=== PATIENT | male | born 1945 | race Caucasian/White ===

== ENCOUNTER 2019-04-06 01:30 | Outpatient (CLI) | payer OTHER, SELFPAY ==
[2019-04-06] MEDS: Omnipaque 350 MG/ML 50 ML BTL IJ (12:22)
[2019-04-06] MEDS: Breeza Beverage 473 ML BTL PO (13:25)
[2019-04-06] MEDS: Omnipaque 350 MG/ML 100 ML BTL IJ (13:27)
--- NOTE | 2019-04-06 13:48 | DI.CT_ITS ---
EXAM: CT ABDOMEN AND PELVIS W CLINICAL HISTORY: ABNORMAL WEIGHT LOSS, ABDOMINAL PAIN, LOW APPETITE S/P IMPACTED WISDOM TOOTH, S/P ANTIBIOTICS. TECHNIQUE: CT examination of the abdomen and pelvis was performed with bolus infusion of 100 cc of O mnipaque 350 and ingestion of dilute barium. COMPARISON: No exams were available for comparison FINDINGS: Images obtained through the lung bases are unremarkable. Cardiac size within normal limits. There a re multiple well-circumscribed water attenuation lesions of the liver and right kidney consistent wit h cysts. There are tiny nonobstructing bilateral renal calculi. Pancreas appears normal. Gallbladd er and bile ducts appear normal. Spleen appears normal. Abdominal aorta is of normal diameter. No major vascular occlusion identified. No significant abdominal wall hernia seen. Appendix is not specifically identified but there is no evidence of appendicitis. There is a segment of mid small bowel with very irregularly thickened wall and streaky increased radiodensity in the me sentery with localized mesenteric adenopathy, lymph nodes measuring up to roughly 2 cm in diameter. No retroperitoneal adenopathy seen. No evidence of diverticulitis. Prostate is enlarged. Urinary bladder may have a mildly thickened wall raising the possibility of ch ronic bladder outlet obstruction. IMPRESSION: Very abnormal small bowel segment measuring up to perhaps 10+ cm in length in the mid small bowel wit h very irregular wall thickening, luminal narrowing, and marked increased fat attenuation and adjacen t mesentery with prominent associated mesenteric lymph nodes. The findings as described could represe nt inflammatory process but the possibility of neoplastic disease including lymphoma would also have to be considered. Infectious process not excluded. Incidental note is made of bilateral nonobstructing renal calculi.
== END 2019-04-06 01:50 ==
PROVIDERS: PCP Occupational Therapist; Visit Provider Occupational Therapist
DX: R63.4 Abnormal weight loss (principal); R10.9 Unspecified abdominal pain; R63.0 Anorexia; K63.89 Other specified diseases of intestine; N28.1 Cyst of kidney, acquired; K76.89 Other specified diseases of liver; N20.0 Calculus of kidney; R59.0 Localized enlarged lymph nodes; N40.0 Benign prostatic hyperplasia without lower urinary tract symptoms; N32.89 Other specified disorders of bladder
CPT/HCPCS: 74177; J3490; Q9967

== ENCOUNTER 2019-09-26 10:30 | Outpatient (RCR) | payer OTHER, SELFPAY ==
[2019-09-12] MEDS: Normal Saline Flush 10 ML SYR IVP (11:41)
[2019-09-12] MEDS: Heparin 500 UNITS/5 ML SYRINGE IV (11:41)
[2019-09-12 11:44] LABS: Abs Immature Grans 0.17 k/cumm (0.0-0.09); Absolute Basophil Count 0.04 k/cumm (0.0-0.2); Absolute Eosinophil Count 0.01 k/cumm (0.0-0.7); Absolute Monocyte Count 0.82 k/cumm (0.11-0.7); Basophils % 0.4; Eosinophils % 0.1; HCT 28.3 % (40.0-50.0); HGB 9.1 g/dL (13.5-17.5); Immature Grans % 1.8 %; Lymphocytes % 8.4; Mean Corp. HGB Concentration 32.2 g/dL (32.0-36.0); Mean Corpuscular Hemoglobin 31.7 pg (27.0-33.0); Mean Corpuscular Volume 98.6 fL (80-95); Mean Platelet Volume 8.4 fL (8.0-11.0); Monocytes % 8.6; Neutrophils % 80.7; RBC 2.87 m/cumm (4.50-6.00); RBC Distribution Width 13.2 % (11.8-14.1); White Blood Cell Count 9.54 k/cumm (4.4-10.8)
[2019-09-12 12:12] LABS: Platelet Count 821 x1000/uL (130-400)
[2019-09-12 12:13] LABS: Diff Comment PLT Morph Reviewed; Polychromasia Present
[2019-09-19] MEDS: Normal Saline Flush 10 ML SYR IVP (07:40)
[2019-09-19 07:47] LABS: Absolute Lymphocyte Count 1.07 k/cumm (1.2-3.4); Absolute Monocyte Count 1.18 k/cumm (0.11-0.7); Basophils % 0.6; Eosinophils % 0.2; HCT 27.5 % (40.0-50.0); Immature Grans % 1.6 %; Lymphocytes % 8.6; Mean Corp. HGB Concentration 32.7 g/dL (32.0-36.0); Mean Corpuscular Hemoglobin 32.3 pg (27.0-33.0); Mean Corpuscular Volume 98.6 fL (80-95); Mean Platelet Volume 8.1 fL (8.0-11.0); Monocytes % 9.5; Neutrophils % 79.5; RBC 2.79 m/cumm (4.50-6.00); RBC Distribution Width 13.7 % (11.8-14.1); White Blood Cell Count 12.45 k/cumm (4.4-10.8)
[2019-09-19 07:59] LABS: Absolute Basophil Count 0.07 k/cumm (0.0-0.2); Absolute Eosinophil Count 0.02 k/cumm (0.0-0.7)
[2019-09-19 08:02] LABS: ALT 21 U/L (16-63); AST 16 U/L (15-37); Albumin 3.6 g/dL (3.4-5.0); Alkaline Phosphatase 84 U/L (46-116); Anion Gap 11.7 mmol/L (3-11); BUN 38 mg/dL (7-18); Bilirubin, Total 0.1 mg/dL (0.2-1.0); CO2 20.3 mmol/L (21.0-32.0); CREATININE 1.49 mg/dL (0.70-1.30); Calcium 8.1 mg/dL (8.5-10.1); Chloride 108 mmol/L (98-107); Estimated GFR 45.85 (mL/min/1.73m2); Glucose 107 mg/dL (74-106); LDH 153 U/L (85-227); Potassium 4.8 mmol/L (3.5-5.1); Sodium 140 mmol/L (136-145); Total Protein 7.6 g/dL (6.4-8.2)
[2019-09-19 08:05] LABS: Anisocytosis 1+; Hypochromasia 1+; Platelet Count 989 x1000/uL (130-400); Polychromasia Present
[2019-09-26] MEDS: Normal Saline Flush 10 ML SYR IVP (10:40)
[2019-09-26 10:57] LABS: Abs Immature Grans 0.11 k/cumm (0.0-0.09); HCT 26.8 % (40.0-50.0); HGB 8.7 g/dL (13.5-17.5); Mean Corp. HGB Concentration 32.5 g/dL (32.0-36.0); Mean Corpuscular Hemoglobin 31.9 pg (27.0-33.0); Mean Corpuscular Volume 98.2 fL (80-95); Platelet Count 274 x1000/uL (130-400); RBC 2.73 m/cumm (4.50-6.00); RBC Distribution Width 13.5 % (11.8-14.1)
[2019-09-26 11:22] LABS: ALT 46 U/L (16-63); AST 20 U/L (15-37); Albumin 3.6 g/dL (3.4-5.0); Alkaline Phosphatase 108 U/L (46-116); Anion Gap 9.2 mmol/L (3-11); BUN 41 mg/dL (7-18); Bilirubin, Total 0.5 mg/dL (0.2-1.0); CO2 22.8 mmol/L (21.0-32.0); CREATININE 1.31 mg/dL (0.70-1.30); Calcium 8.2 mg/dL (8.5-10.1); Chloride 105 mmol/L (98-107); Ferritin 410 ng/mL (26-388); Glucose 112 mg/dL (74-106); Potassium 4.9 mmol/L (3.5-5.1); Sodium 137 mmol/L (136-145); Total Protein 7.1 g/dL (6.4-8.2)
[2019-09-26 11:46] LABS: White Blood Cell Count 1.48 k/cumm (4.4-10.8)
[2019-09-26 11:47] LABS: Absolute Eosinophil Count 0.09 k/cumm (0.0-0.7); Absolute Monocyte Count 0.09 k/cumm (0.11-0.7); Absolute Neutrophil Count 0.92 k/cumm (1.2-6.7)
[2019-09-26 11:48] LABS: Diff Comment Manual Differential
[2019-09-26 11:49] LABS: Poikilocytes 1+
[2019-09-26 11:58] LABS: Iron 202 ug/dL (65-175); Total Iron Binding Capacity 297 ug/dL (250-450); Transferrin Sat 68 % (20-55)
== END 2019-10-09 23:59 | disposition home or self-care (01) ==
LOC: INF 10:30
PROVIDERS: PCP Occupational Therapist; Visit Provider Internal Medicine Hematology & Oncology
DX: C85.93 Non-Hodgkin lymphoma, unspecified, intra-abdominal lymph nodes (principal); Z45.2 Encounter for adjustment and management of vascular access device
CPT/HCPCS: 36591; 80053; 82728; 83540; 83550; 83615; 85025

== ENCOUNTER 2019-11-07 04:10 | Outpatient (RCR) | payer OTHER, SELFPAY ==
[2019-10-10] MEDS: Normal Saline Flush 10 ML SYR IVP (08:25)
[2019-10-10 08:43] LABS: Abs Immature Grans 0.04 k/cumm (0.0-0.09); Absolute Basophil Count 0.03 k/cumm (0.0-0.2); Absolute Eosinophil Count 0.02 k/cumm (0.0-0.7); Absolute Lymphocyte Count 0.71 k/cumm (1.2-3.4); Absolute Monocyte Count 0.86 k/cumm (0.11-0.7); Absolute Neutrophil Count 6.41 k/cumm (1.2-6.7); Basophils % 0.4; Eosinophils % 0.2; HCT 25.2 % (40.0-50.0); HGB 8.2 g/dL (13.5-17.5); Immature Grans % 0.5 %; Lymphocytes % 8.8; Mean Corp. HGB Concentration 32.5 g/dL (32.0-36.0); Mean Corpuscular Hemoglobin 32.3 pg (27.0-33.0); Mean Corpuscular Volume 99.2 fL (80-95); Mean Platelet Volume 8.1 fL (8.0-11.0); Monocytes % 10.7; Neutrophils % 79.4; RBC 2.54 m/cumm (4.50-6.00); RBC Distribution Width 13.8 % (11.8-14.1); White Blood Cell Count 8.07 k/cumm (4.4-10.8)
[2019-10-10 08:57] LABS: ALT 22 U/L (16-63); AST 16 U/L (15-37); Albumin 3.7 g/dL (3.4-5.0); Alkaline Phosphatase 88 U/L (46-116); Anion Gap 8.5 mmol/L (3-11); BUN 41 mg/dL (7-18); Bilirubin, Total 0.2 mg/dL (0.2-1.0); CO2 21.5 mmol/L (21.0-32.0); CREATININE 1.58 mg/dL (0.70-1.30); Calcium 8.4 mg/dL (8.5-10.1); Chloride 108 mmol/L (98-107); Estimated GFR 42.85 (mL/min/1.73m2); Glucose 136 mg/dL (74-106); LDH 154 U/L (85-227); Potassium 5.3 mmol/L (3.5-5.1); Sodium 138 mmol/L (136-145); Total Protein 7.7 g/dL (6.4-8.2)
[2019-10-10 08:58] LABS: Diff Comment RBC Morph Reviewed; Platelet Count 634 x1000/uL (130-400)
[2019-10-10 08:59] LABS: Anisocytosis 1+
[2019-10-10 09:00] LABS: Poikilocytes 1+
[2019-10-10 13:05] LABS: Reticulocyte 2.2 % (0.5-2.4)
[2019-10-10 13:41] LABS: Folate 8.7 ng/mL (8.6-20.0); TSH 1.24 uIU/mL (0.36-3.74)
[2019-10-10 13:51] LABS: Vitamin B12 > 2000 pg/mL (193-986)
[2019-10-11 11:28] LABS: Haptoglobin 250 mg/dL (32-197)
[2019-10-11 14:46] LABS: Erythropoietin 17.1 mIU/mL (2.6 - 18.5)
[2019-10-17] MEDS: Normal Saline Flush 10 ML SYR IVP (09:30)
[2019-10-17 09:52] LABS: Abs Immature Grans 0.03 k/cumm (0.0-0.09); Absolute Basophil Count 0.01 k/cumm (0.0-0.2); Absolute Eosinophil Count 0.04 k/cumm (0.0-0.7); Absolute Lymphocyte Count 0.57 k/cumm (1.2-3.4); Absolute Monocyte Count 0.87 k/cumm (0.11-0.7); Absolute Neutrophil Count 6.52 k/cumm (1.2-6.7); Basophils % 0.1; Eosinophils % 0.5; HGB 8.9 g/dL (13.5-17.5); Immature Grans % 0.4 %; Lymphocytes % 7.1; Mean Platelet Volume 8.3 fL (8.0-11.0); Monocytes % 10.8; Neutrophils % 81.1; Platelet Count 466 x1000/uL (130-400); RBC Distribution Width 14.7 % (11.8-14.1); White Blood Cell Count 8.04 k/cumm (4.4-10.8)
[2019-10-17 10:13] LABS: ALT 25 U/L (16-63); AST 17 U/L (15-37); Albumin 3.9 g/dL (3.4-5.0); Alkaline Phosphatase 84 U/L (46-116); Anion Gap 9.2 mmol/L (3-11); BUN 48 mg/dL (7-18); Bilirubin, Total 0.3 mg/dL (0.2-1.0); CO2 21.8 mmol/L (21.0-32.0); CREATININE 1.49 mg/dL (0.70-1.30); Calcium 8.5 mg/dL (8.5-10.1); Chloride 108 mmol/L (98-107); Estimated GFR 45.85 (mL/min/1.73m2); Glucose 125 mg/dL (74-106); LDH 149 U/L (85-227); Potassium 4.9 mmol/L (3.5-5.1); Sodium 139 mmol/L (136-145)
[2019-11-07] MEDS: Normal Saline Flush 10 ML SYR IVP (08:50)
[2019-11-07 08:58] LABS: Abs Immature Grans 0.02 k/cumm (0.0-0.09); Absolute Basophil Count 0.02 k/cumm (0.0-0.2); Absolute Eosinophil Count 0.02 k/cumm (0.0-0.7); Absolute Lymphocyte Count 0.52 k/cumm (1.2-3.4); Absolute Monocyte Count 0.75 k/cumm (0.11-0.7); Absolute Neutrophil Count 4.99 k/cumm (1.2-6.7); Basophils % 0.3; Eosinophils % 0.3; HCT 25.9 % (40.0-50.0); HGB 8.3 g/dL (13.5-17.5); Immature Grans % 0.3 %; Lymphocytes % 8.2; Mean Corpuscular Hemoglobin 32.9 pg (27.0-33.0); Mean Corpuscular Volume 102.8 fL (80-95); Mean Platelet Volume 7.9 fL (8.0-11.0); Monocytes % 11.9; Platelet Count 520 x1000/uL (130-400); RBC 2.52 m/cumm (4.50-6.00); RBC Distribution Width 16.2 % (11.8-14.1); White Blood Cell Count 6.32 k/cumm (4.4-10.8)
[2019-11-07 09:14] LABS: ALT 26 U/L (16-63); AST 17 U/L (15-37); Albumin 3.7 g/dL (3.4-5.0); Alkaline Phosphatase 100 U/L (46-116); Anion Gap 9.9 mmol/L (3-11); BUN 32 mg/dL (7-18); Bilirubin, Total 0.2 mg/dL (0.2-1.0); CO2 19.1 mmol/L (21.0-32.0); CREATININE 1.54 mg/dL (0.70-1.30); Calcium 8.3 mg/dL (8.5-10.1); Chloride 109 mmol/L (98-107); Estimated GFR 44.14 (mL/min/1.73m2); Glucose 147 mg/dL (74-106); LDH 145 U/L (85-227); Potassium 4.9 mmol/L (3.5-5.1); Sodium 138 mmol/L (136-145); Total Protein 7.6 g/dL (6.4-8.2)
[2019-11-07 09:16] LABS: Anisocytosis 1+; Diff Comment RBC Morph Reviewed; Macrocytosis 1+; Poikilocytes 1+; Polychromasia Present
== END 2019-11-08 23:59 | disposition home or self-care (01) ==
LOC: INF 04:10
PROVIDERS: PCP Occupational Therapist; Visit Provider Internal Medicine Hematology & Oncology
DX: C85.93 Non-Hodgkin lymphoma, unspecified, intra-abdominal lymph nodes (principal); Z45.2 Encounter for adjustment and management of vascular access device; D64.9 Anemia, unspecified
CPT/HCPCS: 36591; 80053; 82668; 82607; 82746; 83010; 83615; 84443; 85025; 85045; 86880

== ENCOUNTER 2019-12-05 01:42 | Outpatient (RCR) | payer OTHER, SELFPAY ==
[2019-11-28] MEDS: Normal Saline Flush 10 ML SYR IVP (08:29)
[2019-11-28 08:32] LABS: Abs Immature Grans 0.02 k/cumm (0.0-0.09); Absolute Basophil Count 0.02 k/cumm (0.0-0.2); Absolute Eosinophil Count 0.01 k/cumm (0.0-0.7); Absolute Lymphocyte Count 0.71 k/cumm (1.2-3.4); Absolute Monocyte Count 0.76 k/cumm (0.11-0.7); Absolute Neutrophil Count 4.88 k/cumm (1.2-6.7); Basophils % 0.3; Eosinophils % 0.2; HCT 25.6 % (40.0-50.0); HGB 8.3 g/dL (13.5-17.5); Immature Grans % 0.3 %; Lymphocytes % 11.1; Mean Corp. HGB Concentration 32.4 g/dL (32.0-36.0); Mean Corpuscular Hemoglobin 33.5 pg (27.0-33.0); Mean Corpuscular Volume 103.2 fL (80-95); Mean Platelet Volume 7.7 fL (8.0-11.0); Monocytes % 11.9; Neutrophils % 76.2; RBC 2.48 m/cumm (4.50-6.00); RBC Distribution Width 16.7 % (11.8-14.1)
[2019-11-28 08:44] LABS: ALT 24 U/L (16-63); AST 21 U/L (15-37); Albumin 3.9 g/dL (3.4-5.0); Alkaline Phosphatase 97 U/L (46-116); Anion Gap 11.2 mmol/L (3-11); BUN 42 mg/dL (7-18); Bilirubin, Total 0.2 mg/dL (0.2-1.0); CO2 19.8 mmol/L (21.0-32.0); CREATININE 1.75 mg/dL (0.70-1.30); Calcium 8.5 mg/dL (8.5-10.1); Chloride 105 mmol/L (98-107); Estimated GFR 38.09 (mL/min/1.73m2); Glucose 123 mg/dL (74-106); LDH 198 U/L (85-227); Sodium 136 mmol/L (136-145); Total Protein 7.8 g/dL (6.4-8.2)
[2019-11-28 08:49] LABS: Platelet Count 689 x1000/uL (130-400)
[2019-11-28 08:51] LABS: Anisocytosis 1+; Poikilocytes 1+; Polychromasia Present
[2019-12-05] MEDS: Normal Saline Flush 10 ML SYR IVP (07:44)
[2019-12-05 07:48] LABS: Absolute Basophil Count 0.04 k/cumm (0.0-0.2); Absolute Eosinophil Count 0.06 k/cumm (0.0-0.7); Absolute Lymphocyte Count 0.88 k/cumm (1.2-3.4); Absolute Monocyte Count 0.89 k/cumm (0.11-0.7); Absolute Neutrophil Count 3.59 k/cumm (1.2-6.7); Basophils % 0.7; Eosinophils % 1.1; HCT 25.7 % (40.0-50.0); HGB 8.4 g/dL (13.5-17.5); Lymphocytes % 16.1; Mean Corp. HGB Concentration 32.7 g/dL (32.0-36.0); Mean Corpuscular Hemoglobin 33.9 pg (27.0-33.0); Mean Corpuscular Volume 103.6 fL (80-95); Mean Platelet Volume 8.2 fL (8.0-11.0); Monocytes % 16.3; Neutrophils % 65.8; Platelet Count 473 x1000/uL (130-400); RBC 2.48 m/cumm (4.50-6.00); RBC Distribution Width 16.3 % (11.8-14.1); White Blood Cell Count 5.46 k/cumm (4.4-10.8)
[2019-12-05 08:01] LABS: ALT 21 U/L (16-63); AST 21 U/L (15-37); Albumin 3.8 g/dL (3.4-5.0); Alkaline Phosphatase 83 U/L (46-116); Anion Gap 10.5 mmol/L (3-11); BUN 44 mg/dL (7-18); Bilirubin, Total 0.2 mg/dL (0.2-1.0); CO2 16.5 mmol/L (21.0-32.0); CREATININE 1.85 mg/dL (0.70-1.30); Calcium 8.3 mg/dL (8.5-10.1); Chloride 110 mmol/L (98-107); Estimated GFR 35.72 (mL/min/1.73m2); Glucose 117 mg/dL (74-106); LDH 145 U/L (85-227); Potassium 4.9 mmol/L (3.5-5.1); Sodium 137 mmol/L (136-145); Total Protein 7.5 g/dL (6.4-8.2)
== END 2019-12-09 23:59 | disposition home or self-care (01) ==
LOC: INF 01:42
PROVIDERS: PCP Occupational Therapist; Visit Provider Internal Medicine Hematology & Oncology
DX: C85.93 Non-Hodgkin lymphoma, unspecified, intra-abdominal lymph nodes (principal); Z45.2 Encounter for adjustment and management of vascular access device
CPT/HCPCS: 36591; 80053; 83615; 85025

== ENCOUNTER 2019-12-26 02:57 | Outpatient (RCR) | payer OTHER, SELFPAY ==
[2019-12-26] MEDS: Normal Saline Flush 10 ML SYR IVP (09:00)
[2019-12-26 09:15] LABS: Abs Immature Grans 0.01 k/cumm (0.0-0.09); Absolute Basophil Count 0.01 k/cumm (0.0-0.2); Absolute Eosinophil Count 0.01 k/cumm (0.0-0.7); Absolute Lymphocyte Count 0.61 k/cumm (1.2-3.4); Absolute Monocyte Count 0.71 k/cumm (0.11-0.7); Absolute Neutrophil Count 3.56 k/cumm (1.2-6.7); Basophils % 0.2; Eosinophils % 0.2; HCT 25.6 % (40.0-50.0); HGB 8.3 g/dL (13.5-17.5); Immature Grans % 0.2 %; Lymphocytes % 12.4; Mean Corp. HGB Concentration 32.4 g/dL (32.0-36.0); Mean Corpuscular Hemoglobin 34.2 pg (27.0-33.0); Mean Corpuscular Volume 105.3 fL (80-95); Monocytes % 14.5; Neutrophils % 72.5; Platelet Count 372 x1000/uL (130-400); RBC 2.43 m/cumm (4.50-6.00); RBC Distribution Width 14.9 % (11.8-14.1); White Blood Cell Count 4.91 k/cumm (4.4-10.8)
[2019-12-26 09:29] LABS: ALT 27 U/L (16-63); AST 18 U/L (15-37); Albumin 3.8 g/dL (3.4-5.0); Alkaline Phosphatase 105 U/L (46-116); Anion Gap 10.8 mmol/L (3-11); BUN 35 mg/dL (7-18); Bilirubin, Total 0.2 mg/dL (0.2-1.0); CO2 19.2 mmol/L (21.0-32.0); CREATININE 1.59 mg/dL (0.70-1.30); Calcium 8.3 mg/dL (8.5-10.1); Chloride 109 mmol/L (98-107); Estimated GFR 42.54 (mL/min/1.73m2); Glucose 134 mg/dL (74-106); LDH 167 U/L (85-227); Potassium 4.7 mmol/L (3.5-5.1); Sodium 139 mmol/L (136-145); Total Protein 7.6 g/dL (6.4-8.2)
== END 2020-01-08 23:59 | disposition home or self-care (01) ==
LOC: INF 02:57
PROVIDERS: PCP Occupational Therapist; Visit Provider Internal Medicine Hematology & Oncology
DX: C85.93 Non-Hodgkin lymphoma, unspecified, intra-abdominal lymph nodes (principal); Z45.2 Encounter for adjustment and management of vascular access device
CPT/HCPCS: 36591; 80053; 83615; 85025

== ENCOUNTER 2020-01-30 02:47 | Outpatient (RCR) | payer OTHER, SELFPAY ==
[2020-01-30 09:38] LABS: Abs Immature Grans 0.01 k/cumm (0.0-0.09); Absolute Basophil Count 0.02 k/cumm (0.0-0.2); Absolute Eosinophil Count 0.11 k/cumm (0.0-0.7); Absolute Lymphocyte Count 1.71 k/cumm (1.2-3.4); Absolute Monocyte Count 1.01 k/cumm (0.11-0.7); Absolute Neutrophil Count 3.86 k/cumm (1.2-6.7); Basophils % 0.3; Eosinophils % 1.6; HCT 28.3 % (40.0-50.0); HGB 9.4 g/dL (13.5-17.5); Immature Grans % 0.1 %; Lymphocytes % 25.4; Mean Corp. HGB Concentration 33.2 g/dL (32.0-36.0); Mean Corpuscular Hemoglobin 34.4 pg (27.0-33.0); Mean Corpuscular Volume 103.7 fL (80-95); Mean Platelet Volume 8.2 fL (8.0-11.0); Neutrophils % 57.6; Platelet Count 339 x1000/uL (130-400); RBC 2.73 m/cumm (4.50-6.00); RBC Distribution Width 14.4 % (11.8-14.1); White Blood Cell Count 6.72 k/cumm (4.4-10.8)
[2020-01-30] MEDS: Heparin 500 UNITS/5 ML SYRINGE IV (09:38)
[2020-01-30] MEDS: Normal Saline Flush 10 ML SYR IVP (09:38)
[2020-01-30 09:54] LABS: Diff Comment RBC Morph Reviewed
[2020-01-30 09:55] LABS: Anisocytosis 1+; Macrocytosis 1+; Poikilocytes 1+; Polychromasia Present
[2020-01-30 09:57] LABS: ALT 25 U/L (16-63); AST 19 U/L (15-37); Alkaline Phosphatase 106 U/L (46-116); Anion Gap 12.2 mmol/L (3-11); BUN 40 mg/dL (7-18); Bilirubin, Total 0.2 mg/dL (0.2-1.0); CO2 18.8 mmol/L (21.0-32.0); CREATININE 1.61 mg/dL (0.70-1.30); Calcium 8.4 mg/dL (8.5-10.1); Chloride 108 mmol/L (98-107); Estimated GFR 41.93 (mL/min/1.73m2); Glucose 121 mg/dL (74-106); LDH 143 U/L (85-227); Potassium 4.8 mmol/L (3.5-5.1); Sodium 139 mmol/L (136-145)
== END 2020-02-08 23:59 | disposition home or self-care (01) ==
LOC: INF 02:47
PROVIDERS: PCP Occupational Therapist; Visit Provider Internal Medicine Hematology & Oncology
DX: C85.93 Non-Hodgkin lymphoma, unspecified, intra-abdominal lymph nodes (principal)
CPT/HCPCS: 36591; 80053; 83615; 85025

== ENCOUNTER 2020-05-07 03:03 | Outpatient (RCR) | payer OTHER, SELFPAY | END 2020-05-10 23:59 | disposition home or self-care (01) | LOC: INF 03:03 | PROVIDERS: PCP Occupational Therapist; Visit Provider Internal Medicine Hematology & Oncology | DX: Z53.9 Procedure and treatment not carried out, unspecified reason (principal) ==

== ENCOUNTER 2020-08-27 02:26 | Outpatient (RCR) | payer MEDICARE, OTHER, SELFPAY ==
[2020-08-27 10:55] LABS: Abs Immature Grans 0.02 10^3/uL (0.0-0.06); Absolute Basophil Count 0.02 10^3/uL (0.0-0.2); Absolute Eosinophil Count 0.14 10^3/uL (0.0-0.7); Absolute Monocyte Count 0.49 10^3/uL (0.1-0.8); Basophils % 0.4; Eosinophils % 2.5; HCT 28.3 % (40.0-50.0); HGB 9.3 g/dL (13.5-17.5); Immature Grans % 0.4; Lymphocytes % 16.2; MCH 33.3 pg (27.0-33.0); MCHC 32.9 % (32.0-36.0); MCV 101.4 fL (80-95); MPV 8.8 fL (8.0-11.0); Monocytes % 8.8; Neutrophils % 71.7; Nucleated RBC 0 %; Platelet Count 338 10^3/uL (130-400); RBC 2.79 10^6/uL (4.36-5.78); RDW 12.8 % (11.8-14.1); RDW-SD 47.8 fL; WBC 5.57 10^3/uL (4.4-10.8)
[2020-08-27] MEDS: Normal Saline Flush 10 ML SYR IVP (11:11)
[2020-08-27] MEDS: Heparin 500 UNITS/5 ML SYRINGE IV (11:11)
[2020-08-27 11:38] LABS: ALT 27 U/L (16-63); AST 20 U/L (15-37); Albumin 3.7 g/dL (3.4-5.0); Alkaline Phosphatase 115 U/L (46-116); Anion Gap 9.1 mmol/L (3-11); BUN 36 mg/dL (7-18); Bilirubin, Total 0.3 mg/dL (0.2-1.0); CO2 19.9 mmol/L (21.0-32.0); CREATININE 1.4 mg/dL (0.70-1.30); Calcium 8.3 mg/dL (8.5-10.1); Chloride 110 mmol/L (98-107); Estimated GFR 49.14 (mL/min/1.73m2); Ferritin 21 ng/mL (26-388); Glucose 119 mg/dL (74-106); LDH 166 U/L (85-227); Potassium 4.5 mmol/L (3.5-5.1); Sodium 139 mmol/L (136-145); Total Protein 7.7 g/dL (6.4-8.2); Vitamin B12 355 pg/mL (193-986)
[2020-08-27 14:21] LABS: Iron 83 ug/dL (65-175)
== END 2020-09-07 23:59 | disposition home or self-care (01) ==
LOC: INF 02:26
PROVIDERS: PCP Occupational Therapist; Visit Provider Internal Medicine Hematology & Oncology
DX: C85.93 Non-Hodgkin lymphoma, unspecified, intra-abdominal lymph nodes (principal); Z45.2 Encounter for adjustment and management of vascular access device; D64.9 Anemia, unspecified
CPT/HCPCS: 36591; 80053; 82607; 82728; 83540; 83550; 83615; 85025

== ENCOUNTER 2021-04-01 09:56 | Outpatient (RCR) | payer OTHER, SELFPAY ==
[2021-04-01] MEDS: Normal Saline Flush 10 ML SYR IVP (10:13)
[2021-04-01] MEDS: Heparin 500 UNITS/5 ML SYRINGE IVP (10:14)
[2021-04-01 10:28] LABS: Abs Immature Grans 0.02 10^3/uL (0.0-0.06); Absolute Basophil Count 0.02 10^3/uL (0.0-0.2); Absolute Eosinophil Count 0.16 10^3/uL (0.0-0.7); Absolute Lymphocyte Count 0.96 10^3/uL (1.2-3.4); Absolute Monocyte Count 0.63 10^3/uL (0.1-0.8); Absolute Neutrophil Count 3.77 10^3/uL (1.2-6.7); Basophils % 0.4; Eosinophils % 2.9; HGB 10.7 g/dL (13.5-17.5); Immature Grans % 0.4; Lymphocytes % 17.3; MCH 32.5 pg (27.0-33.0); MCHC 32.4 % (32.0-36.0); MCV 100.3 fL (80-95); MPV 8.5 fL (8.0-11.0); Monocytes % 11.3; Neutrophils % 67.7; Nucleated RBC 0 %; Platelet Count 352 10^3/uL (130-400); RBC 3.29 10^6/uL (4.36-5.78); RDW-SD 48.3 fL; WBC 5.56 10^3/uL (4.4-10.8)
[2021-04-01 10:43] LABS: Hemoglobin A1C 6.4 % (<5.7)
[2021-04-01 10:53] LABS: ALT 35 U/L (16-63); AST 25 U/L (15-37); Albumin 4.1 g/dL (3.4-5.0); Alkaline Phosphatase 131 U/L (46-116); Anion Gap 9.7 mmol/L (3-11); BUN 34 mg/dL (7-18); Bilirubin, Total 0.6 mg/dL (0.2-1.0); CO2 25.3 mmol/L (21.0-32.0); CREATININE 1.6 mg/dL (0.70-1.30); Calcium 8.6 mg/dL (8.5-10.1); Chloride 106 mmol/L (98-107); Estimated GFR 42.01 (mL/min/1.73m2); Ferritin 40 ng/mL (26-388); Glucose 120 mg/dL (74-106); Sodium 141 mmol/L (136-145); Total Protein 8.2 g/dL (6.4-8.2)
[2021-04-01 11:02] LABS: Iron 112 ug/dL (65-175); Total Iron Binding Capacity 346 ug/dL (250-450); Transferrin Sat 32 % (20-55)
[2021-04-01 11:23] LABS: LDH 202 U/L (85-227)
[2021-04-02 13:11] LABS: Albumin 57.7 % (55.8-66.1); Comment (See Note); Monoclonal Spike 7.1 % (None Seen); Total Protein 7.6 g/dL (6.3-8.2)
[2021-04-07 10:08] LABS: Immunotyping, Serum (See Note)
== END 2021-04-09 23:59 | disposition home or self-care (01) ==
LOC: INF 09:56
PROVIDERS: PCP Internal Medicine; Visit Provider Internal Medicine Hematology & Oncology
DX: C85.93 Non-Hodgkin lymphoma, unspecified, intra-abdominal lymph nodes (principal); Z45.2 Encounter for adjustment and management of vascular access device
CPT/HCPCS: 36591; 80053; 82728; 83036; 83540; 83550; 83615; 84165; 85025; 86320

== ENCOUNTER 2021-07-31 00:18 | Outpatient (CLI) | payer OTHER, SELFPAY ==
--- NOTE | 2021-07-31 11:30 | DI.CT_ITS ---
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 Pulmonary parenchyma: There is mild scarring or atelectasis in the lung bases. No focal consolidatin g infiltrates are seen no pulmonary nodules are present. There are scattered ground-glass opacities predominantly in the dependent portion of the lungs likely reflecting poor inspiration/atelectasis. Please correlate clinically. Visualized thyroid gland: Unremarkable. Mediastinum and Samanta: No dominant adenopathy or fluid collection. The esophagus is unremarkable. Pleura: No effusion or pneumothorax. Pleural calcifications are present bilaterally which may reflect prior asbestos exposure. Heart: Mildly enlarged. Coronary artery calcifications are present. No pericardial effusion. Pulmonary arteries: No pulmonary emboli are identified. Aorta: Thoracic aorta non-dilated. Atherosclerosis. No evidence of dissection. Lymph nodes: Within normal limits. Tubes, Catheters, and Lines: The tip of the indwelling central venous catheter lies at the cavoatrial junction. Soft tissues: Unremarkable. Bones:Within normal limits for the patient's age. ABDOMEN: Liver: Normal density. There are stable hepatic cysts. No follow-up is recommended. No suspicious h epatic masses. Portal, Superior Mesenteric, and Splenic Veins: Unremarkable. Gallbladder and Biliary Tract: No radiodense calculus or dilation. Pancreas: Normal density, no abnormal calcifications or inflammatory process. Spleen: Normal. Adrenals: No masses seen. Kidneys: Normal size, contour and axis. Bilateral nephrolithiasis. No hydronephrosis. Bilateral sim ple renal cysts. No follow-up is recommended. Abdominal Aorta: Abdominal portion non-dilated. Atherosclerosis. Bowel: No obstruction or bowel wall thickening. No evidence of appendicitis. Anastomotic clips seen in the small bowel in the left abdomen. No evidence of recurrent small bowel mass. Anastomotic clip s seen near the rectosigmoid junction. Peritoneal Cavity: No ascites, collection or mesenteric inflammatory response. No free air. Lymph Nodes: Within normal limits. Bones: Unremarkable. Soft Tissues: Unremarkable. PELVIS: Bladder: Symmetric distention, no gross wall thickening. Reproductive Organs: The prostate gland is enlarged and impinges upon the base of the urinary bladder . Lymph Nodes: Within normal limits. Bones: Within normal limits. IMPRESSION: 1. No evidence of recurrent or residual abdominal or pelvic mass or adenopathy. 2. No evidence of thoracic adenopathy. RADIATION DOSE DELIVERED: 2,515.18mGy.cm Total DLP DATA REPOSITORY: All CT scans at this facility are submitted to the National Radiology Data Registry (NRDR) Dose Index Registry (DIR) with the [employer] ([employer]). RADIATION OPTIMIZATION: All CT scans at this facility use at least one of these dose optimization te chniques: automated exposure control; mA and/or kV adjustment per patient size (includes targeted exa ms where dose is matched to clinical indication); or iterative reconstruction.
[2021-07-31] MEDS: Breeza Beverage 473 ML BTL PO ×2 (12:17)
[2021-07-31] MEDS: Omnipaque 350 MG/ML 50 ML BTL PO (12:18)
[2021-07-31] MEDS: Omnipaque 350 MG/ML 100 ML BTL IJ (15:01)
[2021-07-31] MEDS: Normal Saline Flush 10 ML SYR IVP (15:02)
== END 2021-07-31 00:38 ==
PROVIDERS: PCP Internal Medicine; Visit Provider Internal Medicine Hematology & Oncology
DX: C85.93 Non-Hodgkin lymphoma, unspecified, intra-abdominal lymph nodes (principal); D50.8 Other iron deficiency anemias; J98.4 Other disorders of lung; K76.89 Other specified diseases of liver; N20.0 Calculus of kidney; N28.1 Cyst of kidney, acquired; N40.0 Benign prostatic hyperplasia without lower urinary tract symptoms
CPT/HCPCS: 74177; 71260; J3490; Q9967

== ENCOUNTER 2021-07-31 01:17 | Outpatient (RCR) | payer OTHER, SELFPAY ==
[2021-07-31] MEDS: Normal Saline Flush 10 ML SYR IVP (11:58)
[2021-07-31] MEDS: Heparin 500 UNITS/5 ML SYRINGE IV (11:58)
[2021-07-31 12:09] LABS: Abs Immature Grans 0.02 10^3/uL (0.0-0.06); Absolute Basophil Count 0.03 10^3/uL (0.0-0.2); Absolute Lymphocyte Count 1.07 10^3/uL (1.2-3.4); Absolute Monocyte Count 0.72 10^3/uL (0.1-0.8); Absolute Neutrophil Count 4.49 10^3/uL (1.2-6.7); Basophils % 0.5; Eosinophils % 3.1; HCT 36.2 % (40.0-50.0); HGB 11.5 g/dL (13.5-17.5); Immature Grans % 0.3; Lymphocytes % 16.4; MCH 32.2 pg (27.0-33.0); MCHC 31.8 % (32.0-36.0); MCV 101.4 fL (80-95); MPV 8.6 fL (8.0-11.0); Neutrophils % 68.7; Nucleated RBC 0 %; Platelet Count 364 10^3/uL (130-400); RBC 3.57 10^6/uL (4.36-5.78); RDW 13.1 % (11.8-14.1); WBC 6.53 10^3/uL (4.4-10.8)
[2021-07-31 12:32] LABS: Iron 107 ug/dL (65-175); Total Iron Binding Capacity 339 ug/dL (250-450); Transferrin Sat 32 % (20-55)
[2021-07-31 12:36] LABS: ALT 43 U/L (16-63); AST 28 U/L (15-37); Albumin 3.9 g/dL (3.4-5.0); Alkaline Phosphatase 120 U/L (46-116); Anion Gap 10.7 mmol/L (3-11); BUN 28 mg/dL (7-18); Bilirubin, Total 0.4 mg/dL (0.2-1.0); CO2 23.3 mmol/L (21.0-32.0); CREATININE 1.4 mg/dL (0.70-1.30); Calcium 8.3 mg/dL (8.5-10.1); Chloride 105 mmol/L (98-107); Estimated GFR 49.01 (mL/min/1.73m2); Ferritin 44 ng/mL (26-388); Glucose 127 mg/dL (74-106); Potassium 4.8 mmol/L (3.5-5.1); Sodium 139 mmol/L (136-145); Total Protein 8.1 g/dL (6.4-8.2)
[2021-07-31 12:59] LABS: LDH 192 U/L (85-227)
[2021-08-03 13:51] LABS: Albumin 58.4 % (55.8-66.1); Comment (See Note); Monoclonal Spike 7.2 % (None Seen); Total Protein 7.5 g/dL (6.3-8.2)
== END 2021-08-10 23:59 | disposition home or self-care (01) ==
LOC: INF 01:17
PROVIDERS: PCP Internal Medicine; Visit Provider Internal Medicine Hematology & Oncology
DX: D50.8 Other iron deficiency anemias (principal); C85.93 Non-Hodgkin lymphoma, unspecified, intra-abdominal lymph nodes; D64.9 Anemia, unspecified; Z45.2 Encounter for adjustment and management of vascular access device
CPT/HCPCS: 36591; 80053; 82728; 83540; 83550; 83615; 84165; 85025

== ENCOUNTER 2021-12-16 03:45 | Outpatient (CLI) | payer OTHER, SELFPAY | END 2021-12-16 03:46 | disposition home or self-care (01) | LOC: LBO 03:45 | PROVIDERS: PCP Internal Medicine; Visit Provider Internal Medicine Hematology & Oncology ==

== ENCOUNTER 2021-12-16 12:27 | Outpatient (RCR) | payer OTHER, SELFPAY ==
[2021-12-16] MEDS: Heparin 500 UNITS/5 ML SYRINGE IV (12:45)
[2021-12-16] MEDS: Normal Saline Flush 10 ML SYR IVP (12:45)
[2021-12-16 12:49] LABS: Abs Immature Grans 0.01 10^3/uL (0.0-0.06); Absolute Basophil Count 0.01 10^3/uL (0.0-0.2); Absolute Eosinophil Count 0.21 10^3/uL (0.0-0.7); Absolute Lymphocyte Count 0.88 10^3/uL (1.2-3.4); Absolute Monocyte Count 0.44 10^3/uL (0.1-0.8); Absolute Neutrophil Count 3.63 10^3/uL (1.2-6.7); Basophils % 0.2; Eosinophils % 4.1; HCT 34.9 % (40.0-50.0); HGB 11.3 g/dL (13.5-17.5); Immature Grans % 0.2; MCH 32.5 pg (27.0-33.0); MCHC 32.4 % (32.0-36.0); MCV 100 fL (80-95); MPV 8.6 fL (8.0-11.0); Monocytes % 8.5; Platelet Count 363 10^3/uL (130-400); RBC 3.48 10^6/uL (4.36-5.78); RDW 12.8 % (11.8-14.1); RDW-SD 46.8 fL; WBC 5.18 10^3/uL (4.4-10.8)
[2021-12-16 13:14] LABS: ALT 38 U/L (16-63); AST 23 U/L (15-37); Albumin 3.5 g/dL (3.4-5.0); Alkaline Phosphatase 116 U/L (46-116); Anion Gap 9.4 mmol/L (3-11); BUN 24 mg/dL (7-18); Bilirubin, Total 0.3 mg/dL (0.2-1.0); CO2 24.6 mmol/L (21.0-32.0); CREATININE 1.4 mg/dL (0.70-1.30); Calcium 8.4 mg/dL (8.5-10.1); Chloride 105 mmol/L (98-107); Estimated GFR 49.01 (mL/min/1.73m2); Ferritin 100 ng/mL (26-388); Glucose 132 mg/dL (74-106); Potassium 4.6 mmol/L (3.5-5.1); Sodium 139 mmol/L (136-145); Total Protein 7.4 g/dL (6.4-8.2)
[2021-12-16 13:25] LABS: Iron 71 ug/dL (65-175); Total Iron Binding Capacity 295 ug/dL (250-450); Transferrin Sat 24 % (20-55)
[2021-12-16 13:46] LABS: LDH 170 U/L (85-227)
[2021-12-17 14:00] LABS: Albumin 55.6 % (55.8-66.1); Albumin g/dL 3.9 g/dL (3.6-5.2); Comment (See Note); Monoclonal Spike 6.8 % (None Seen); Monoclonal Spike g/dL 0.5 g/dL (None Seen)
== END 2022-01-07 23:59 | disposition home or self-care (01) ==
LOC: INF 12:27
PROVIDERS: PCP Internal Medicine; Visit Provider Internal Medicine Hematology & Oncology
DX: Z45.2 Encounter for adjustment and management of vascular access device (principal); D50.8 Other iron deficiency anemias; C85.93 Non-Hodgkin lymphoma, unspecified, intra-abdominal lymph nodes
CPT/HCPCS: 36591; 80053; 82728; 83540; 83550; 83615; 84165; 85025

== ENCOUNTER → 2021-12-16 18:31 | Outpatient (CLI) | payer OTHER, SELFPAY ==
--- NOTE | 2021-12-16 | DI.RAD_ITS ---
Exam(s) XR LUMBAR SPINE AP, LAT EXAM: XR LUMBAR SPINE AP, LAT CLINICAL HISTORY: LOW BACK PAIN,M54.50-ANEMIA,D50.8-LYMPHOMA,C85.93. TECHNIQUE: 2D digital imaging was performed. COMPARISON: CT CT CHEST/ABD/PEL W from 07/31/2021 FINDINGS: 3 views There is no evidence of acute compression fracture or listhesis. No disc space narrowing evident. N o scoliosis. Some facet joint degenerative changes are noted. No obvious abnormality in the sacrum. IMPRESSION: Osteopenia. No obvious acute osseous findings in the lumbosacral spine. DATA REPOSITORY: RADIATION DOSE DELIVERED:
== END ==
PROVIDERS: PCP Internal Medicine; Visit Provider Internal Medicine Hematology & Oncology
DX: D50.8 Other iron deficiency anemias (principal); C85.93 Non-Hodgkin lymphoma, unspecified, intra-abdominal lymph nodes; M85.80 Other specified disorders of bone density and structure, unspecified site; M54.50 Low back pain, unspecified
CPT/HCPCS: 72100

== ENCOUNTER 2022-07-23 01:03 | Outpatient (RCR) | payer OTHER, SELFPAY ==
[2022-07-23] MEDS: Normal Saline Flush 10 ML SYR IVP (07:37)
[2022-07-23] MEDS: Heparin 500 UNITS/5 ML SYRINGE IV (07:37)
[2022-07-23 07:45] LABS: Abs Immature Grans 0.03 10^3/uL (0.0-0.06); Absolute Basophil Count 0.04 10^3/uL (0.0-0.2); Absolute Eosinophil Count 0.16 10^3/uL (0.0-0.7); Absolute Neutrophil Count 4.91 10^3/uL (1.2-6.7); Basophils % 0.6; Eosinophils % 2.3; HCT 35.1 % (40.0-50.0); HGB 11.7 g/dL (13.5-17.5); Immature Grans % 0.4; Lymphocytes % 15.9; MCH 32.4 pg (27.0-33.0); MCHC 33.3 % (32.0-36.0); MCV 97 fL (80-95); MPV 8.8 fL (8.0-11.0); Monocytes % 10.1; Neutrophils % 70.7; Platelet Count 363 10^3/uL (130-400); RBC 3.61 10^6/uL (4.36-5.78); RDW 12.6 % (11.8-14.1); WBC 6.94 10^3/uL (4.4-10.8)
[2022-07-23 08:12] LABS: ALT 22 U/L (16-63); AST 22 U/L (15-37); Albumin 3.9 g/dL (3.4-5.0); Alkaline Phosphatase 112 U/L (46-116); Anion Gap 6.7 mmol/L (3-11); BUN 30 mg/dL (7-18); Bilirubin, Total 0.4 mg/dL (0.2-1.0); CO2 26.3 mmol/L (21.0-32.0); CREATININE 1.6 mg/dL (0.70-1.30); Calcium 8.4 mg/dL (8.5-10.1); Chloride 106 mmol/L (98-107); Estimated GFR 43.56 (mL/min/1.73m2); Ferritin 93 ng/mL (26-388); Glucose 130 mg/dL (74-106); Potassium 4.8 mmol/L (3.5-5.1); Sodium 139 mmol/L (136-145); Total Protein 7.7 g/dL (6.4-8.2)
[2022-07-23 08:20] LABS: Iron 55 ug/dL (65-175); Total Iron Binding Capacity 293 ug/dL (250-450); Transferrin Sat 19 % (20-55)
[2022-07-23 08:23] LABS: LDH 170 U/L (85-227)
== END 2022-08-10 23:59 | disposition home or self-care (01) ==
LOC: INF 01:03
PROVIDERS: Internal Medicine Hematology & Oncology; PCP Internal Medicine; Visit Provider Internal Medicine Hematology & Oncology
DX: M54.50 Low back pain, unspecified (principal); D50.8 Other iron deficiency anemias; C85.93 Non-Hodgkin lymphoma, unspecified, intra-abdominal lymph nodes; Z45.2 Encounter for adjustment and management of vascular access device
CPT/HCPCS: 36591; 80053; 82728; 83540; 83550; 83615; 85025

== ENCOUNTER 2023-01-26 13:31 | Outpatient (RCR) | payer OTHER, SELFPAY ==
[2023-01-26] MEDS: Normal Saline Flush 10 ML SYR IVP (13:37)
[2023-01-26] MEDS: Heparin 500 UNITS/5 ML SYRINGE IV (13:38)
[2023-01-26 14:09] LABS: Abs Immature Grans 0.01 10^3/uL (0.0-0.06); Absolute Basophil Count 0.03 10^3/uL (0.0-0.2); Absolute Eosinophil Count 0.33 10^3/uL (0.0-0.7); Absolute Lymphocyte Count 1.25 10^3/uL (1.2-3.4); Absolute Monocyte Count 0.69 10^3/uL (0.1-0.8); Absolute Neutrophil Count 3.54 10^3/uL (1.2-6.7); Basophils % 0.5; Eosinophils % 5.6; HCT 36.6 % (40.0-50.0); HGB 11.8 g/dL (13.5-17.5); Immature Grans % 0.2; Lymphocytes % 21.4; MCH 31.6 pg (27.0-33.0); MCHC 32.2 % (32.0-36.0); MCV 98 fL (80-95); MPV 8.9 fL (8.0-11.0); Monocytes % 11.8; Neutrophils % 60.5; Platelet Count 346 10^3/uL (130-400); RBC 3.73 10^6/uL (4.36-5.78); RDW 13.2 % (11.8-14.1); RDW-SD 47.8 fL; WBC 5.85 10^3/uL (4.4-10.8)
[2023-01-26 14:29] LABS: Iron 86 ug/dL (65-175); Total Iron Binding Capacity 310 ug/dL (250-450); Transferrin Sat 28 % (20-55)
[2023-01-26 14:36] LABS: ALT 21 U/L (16-63); AST 18 U/L (15-37); Alkaline Phosphatase 103 U/L (46-116); BUN 36 mg/dL (7-18); Bilirubin, Total 0.6 mg/dL (0.2-1.0); CREATININE 1.3 mg/dL (0.70-1.30); Calcium 8.7 mg/dL (8.5-10.1); Chloride 107 mmol/L (98-107); Estimated GFR 55.88 (mL/min/1.73m2); Ferritin 47 ng/mL (26-388); Glucose 121 mg/dL (74-106); LDH 176 U/L (85-227); Potassium 5.3 mmol/L (3.5-5.1); Sodium 140 mmol/L (136-145); Total Protein 7.9 g/dL (6.4-8.2)
== END 2023-02-07 23:59 | disposition home or self-care (01) ==
LOC: INF 13:31
PROVIDERS: Internal Medicine Hematology & Oncology; PCP Internal Medicine; Visit Provider Internal Medicine Hematology & Oncology
DX: Z45.2 Encounter for adjustment and management of vascular access device (principal); M54.50 Low back pain, unspecified; D50.8 Other iron deficiency anemias; C85.93 Non-Hodgkin lymphoma, unspecified, intra-abdominal lymph nodes
CPT/HCPCS: 36591; 80053; 82728; 83540; 83550; 83615; 85025